=== PATIENT | female | born 1980 | race American Indian/Alaskan Native ===

== ENCOUNTER 2022-02-05 02:25 | Emergency (ER) | payer SELFPAY ==
[2022-02-05 02:49] VITALS: BP 208/133
[2022-02-05] MEDS ORDERED: ASPIRIN 325 MG TAB PO ONE (02:50)
[2022-02-05 03:15] LABS: Basophils % (Auto) 0.2 % (0.0-1.8); Eosinophils % (Auto) 0.3 % (0.0-4.3); Hematocrit 40.8 % (30.3-42.9); Hemoglobin 13.3 gm/dl (10.1-14.3); Lymphocytes # (Auto) 1.5 K/mm3 (1.2-5.4); Lymphocytes % (Auto) 13.9 % (13.4-35.0); Mean Corpuscular HGB Conc 33 % (30-34); Mean Corpuscular Volume 86 fl (79-97); Monocytes # (Auto) 1.1 K/mm3 (0.0-0.8); Monocytes % (Auto) 10.5 % (0.0-7.3); Platelet Count 164 K/mm3 (140-440); Red Blood Count 4.76 M/mm3 (3.65-5.03); Red Cell Distribution Width 14.2 % (13.2-15.2)
--- NOTE | 2022-02-05 03:27 | XRay Report ---
CHEST 2 VIEWS INDICATION / CLINICAL INFORMATION: CHEST PAIN. COMPARISON: None available. FINDINGS: SUPPORT DEVICES: None. HEART / MEDIASTINUM: No significant abnormality. LUNGS / PLEURA: No significant pulmonary or pleural abnormality. No pneumothorax. BONES: No significant osseous abnormality. ADDITIONAL FINDINGS: No significant additional findings. IMPRESSION: 1. No active cardiopulmonary disease. Signer Name: Segundo Mario II, MD Signed: 02/05/2022 3:25 AM Workstation Name: [id number]
[2022-02-05 03:31] LABS: Alanine Aminotransferase 13 units/L (7-56); BUN/Creatinine Ratio 12; Blood Urea Nitrogen 13 mg/dL (7-17); Calcium 8.7 mg/dL (8.4-10.2); Hemolysis Index 7
--- NOTE | 2022-02-06 10:01 | Electrocardiograph Report ---
[facility] Test Date: 2022-02-05 Test Time: 02:39:39 Pat Name: SUE CHANDRA Department: Room: Gender: F Court Officer: YANCY : 1980 Requested By: ED DOC Order Number: [id number] Reading MD: Dave Hein Measurements Intervals [place] Rate: 87 P: 62 VA: 179 QRS: 56 QRSD: 54 T: 27 QT: 356 QTc: 429 Interpretive Statements Sinus rhythm LAE, consider biatrial enlargement Probable left ventricular hypertrophy Anterior Q waves, possibly due to LVH No previous ECG available for comparison Electronically Signed On 02-06-2022 10:00:49 EDT by Dave Hein
== END 2022-02-05 19:00 | disposition left against medical advice (07) ==
LOC: ED 02:25
DX: R07.89 Other chest pain (principal); Z53.21 Procedure and treatment not carried out due to patient leaving prior to being seen by health care provider
CPT/HCPCS: 36415; 71046; 80053; 84484; 85025; 93005